=== PATIENT | female | born 1990 | race Caucasian/White ===

== ENCOUNTER 2017-01-24 02:19 | Emergency (ER) | payer OTHER ==
--- NOTE | ~2017-01-24 | CR2 ---
[facility]. [facility] A Service of [facility] & [facility] RADIOLOGY TEXT RESULTS PATIENT: HERON CHISHOLM LOCATION: SED : [birth year] UNIT #: [id number] AGE: [address]: Zackery Gaines MD SEX: F ORDER DR: [id number] [place] [address] [id number] E MR#: [id number] Acc #: [id number] NAME: HERON CHISHOLM : 1990 SEX: F STUDY DATE/TIME: 01/24/2017 3:42 UNIT: SED ROOM: STUDY DESCRIPTION: CR Abdomen Acute Series Attending Physician: Zackery Gaines M.D. Ordering Physician: Zackery Gaines M.D. Primary Care Physician: Primary Care Physician No MEDICAL IMAGING REPORT This report is preliminary unless electronic signature is present. EXAM Acute abdominal series INDICATION Right upper quadrant abdominal and flank pain tonight. PROCEDURE Frontal view chest, supine upright views abdomen and pelvis. COMPARISON None FINDINGS The lungs are clear. No free air. No visible radiodense urinary system calculus. Moderately large colonic stool burden. IMPRESSION Moderately large colonic stool burden. No other acute findings. Dictated by... Alberto Hdz M.D. THIS IS AN ELECTRONICALLY VERIFIED REPORT Alberto Hdz M.D. at 01/24/2017 10:09 PM SÁNCHEZ/mariano TD: 01/24/2017 11:13 JOB #: [id number] MEDICAL IMAGING REPORT Page 1 of 1
[~2017-01-24 02:19] MED LIST: ALBUTEROL17 GM INH; BACTRIM DS TABL1 TA1 PO; BIAXIN PO; BIRTH CONTROL PILL PO; ERYTHROMYCIN O3.5 G1 OP; IBUPROFEN PO; IBUPROFEN800 MG PO; MACROBID100 MG PO; NO MEDICATIONS; PHENERGAN W/CO120 ML PO; TYLOX 5/500 CAP1 CAP PO; VICODIN 5/500 T1 TAB PO; VOLTAREN75 MG PO; ZYRTEC
[2017-01-24 02:52] LABS: BASOPHIL% 0.5 % (0-2.5); EOSINOPHIL# 0.4 X10e3 (0-0.7); EOSINOPHIL% 3.6 % (0.0-7.0); HEMATOCRIT 46.3 % (35.0-45.0); HEMOGLOBIN 16.2 gm/dL (12.0-16.0); LYMPHOCYTE# 2.4 X10e3 (1.0-3.5); LYMPHOCYTE% 23.4 % (17.0-45.0); MEAN CELL VOLUME 96.3 FL (83-96); MEAN CORPUSCULAR HEMOGLOBIN 33.7 PG (28-34); MEAN PLATELET VOLUME 9.1 FL (6.5-11.5); MONOCYTE# 0.6 X10e3 (0-1.0); MONOCYTE% 5.9 % (3.0-12.0); NEUTROPHIL# 6.8 X10e3 (1.5-7.1); NEUTROPHIL% 66.6 % (40-75); PLATELET COUNT 215 X10e3 (140-420); RED CELL DISTRIBUTION WIDTH 13.6 % (11.0-15.5); WHITE BLOOD COUNT 10.2 X10e3 (4.0-10.5)
[2017-01-24 02:53] LABS: DIFF IND NO
[2017-01-24 03:15] LABS: ALBUMIN SERUM 4.2 g/dL (3.5-5.0); BILIRUBIN,TOTAL 0.6 mg/dL (0.2-2.0); BUN/CREATININE RATIO 13.33; CALCIUM SERUM 9.1 mg/dL (8.4-10.2); CREATININE SERUM 0.6 mg/dL (0.6-1.4); GLOM FILT RATE Estimated 126.7 mL/min (>60); POTASSIUM 3.5 mmol/L (3.5-5.1); PROTEIN TOTAL SERUM 7.5 g/dL (6.0-8.3)
[2017-01-24] MEDS ORDERED: NO MEDICATIONS (15:55)
[2017-01-25] MEDS ORDERED: PERCOCET 7.5-31 EACH (16:22)
== END 2017-01-24 05:16 | disposition home or self-care (01) ==
LOC: SED 02:19
DX: K59.00 Constipation, unspecified (principal); R11.2 Nausea with vomiting, unspecified; F17.200 Nicotine dependence, unspecified, uncomplicated; Z79.899 Other long term (current) drug therapy
CPT/HCPCS: 29540; 74022; 80053; 83690; 84703; 85025; 99283; J1170; J2270; J2405

== ENCOUNTER 2017-01-24 13:26 | Observation (INO) | payer OTHER ==
--- NOTE | ~2017-01-24 | HP ---
Unit #: [id number] #: [id number] Patient: HERON CHISHOLM [id number] [address] [address] [id number] I MR#: [id number] NAME: HERON CHISHOLM. ROOM: 479 Age: 26 Sex: F Admission Date: 01/24/2017 : 1990 Attending Physician: Figueroa Cardoso M.D. Primary Care Physician: No Primary Care Physician HISTORY AND PHYSICAL CHIEF COMPLAINT Mid epigastric and right upper quadrant abdominal pain. HISTORY OF PRESENT ILLNESS The patient is a 26-year-old white female who was in her normal good health up until 2 evenings ago when she had eaten some fast food and developed severe mid epigastric and chest pain with right upper quadrant abdominal pain. She had some associated nausea. She presented to the emergency room with these symptoms. She has had some occasional right upper quadrant pain in the past but felt that this was probably related just to gas pains. She had an ultrasound through the emergency room, which revealed evidence of gallstones and probable chronic cholecystitis. PAST MEDICAL HISTORY She has had a history of some asthma, as well as a psychiatric history. 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 SURGERIES IN THE PAST She has had a tonsillectomy, I and D's, benign breast tumor removed and , tubal ligation. MEDICATIONS None chronically except for an occasional inhaler. ALLERGIES None known. TRANSFUSIONS None in the past. FAMILY HISTORY Noncontributory. SOCIAL HISTORY The patient is and lives at home with her family. Normal good appetite with no recent weight change. She has several young children at home. IMMUNIZATIONS Immunizations are up to date. REVIEW OF SYSTEMS A 10-system review of systems has been performed, which his unremarkable, Unit #: [id number] #: [id number] Patient: HERON CHISHOLM except that noted in the history of present illness. She denies any past history for jaundice, hepatitis, pancreatitis or peptic ulcer disease. PHYSICAL EXAMINATION GENERAL DESCRIPTION: The patient is a well-developed, well-nourished 26-year-old white female in no acute distress. VITAL SIGNS: Normal. Temperature 98.2, pulse 100 (now 80), blood pressure 92/60 (was 112/74). HEENT: Unremarkable. NECK: Supple. CHEST: There is equal bilateral expansion with bilateral equal breath sounds. RESPIRATORY: The lungs are clear bilaterally. HEART: Regular rhythm without murmurs, gallops. There is no evidence of cardiomegaly clinically. ABDOMEN: Abdomen is soft, mildly tender in the mid epigastrium and right upper quadrant without masses or organomegaly. There is no gross abdominal distention. No guarding or rebound. Active bowel sounds present. No evidence of ascites or hernias. EXTREMITIES: Full range of motion without limitation. There is no evidence of peripheral edema. BACK EXAM: There is no CVA tenderness. NEUROLOGIC: Grossly intact. DIAGNOSTIC STUDIES LABORATORY: Basically normal. Her liver function tests are normal. IMPRESSION The patient has symptomatic gallbladder disease with biliary colic, possible acute cholecystitis. PLAN Plan will be to go ahead with laparoscopic cholecystectomy. Discussed the surgery, including the risks, including that of common duct injury, biliary leak and bleeding and intraabdominal organ injury, with the patient, and she understands and consents. Dictated by Aydin Rojas Jr. MKathe. LATIA/jacyk TD: 01/25/2017 10:00 JOB #: [id number] HISTORY AND PHYSICAL Page 1 of 1 X Aydin Rojas MD HISTORY AND PHYSICAL
--- NOTE | ~2017-01-24 | OR ---
Unit #: [id number] #: [id number] Patient: HERON CHISHOLM [id number] [address] [address] [id number] I MR#: [id number] NAME: HERON CHISHOLM ROOM: 479 Date of Procedure: 01/25/2017 Admission Date: 01/24/2017 Surgeon: Figueroa Cardoso M.D. : 1990 Attending Physician: Figueroa Cardoso M.D. Primary Care Physician: Primary Care Physician No OPERATIVE REPORT PREOPERATIVE DIAGNOSIS Acute cholecystitis. POSTOPERATIVE DIAGNOSIS Acute cholecystitis. PROCEDURE PERFORMED Laparoscopic cholecystectomy. ANESTHESIA General endotracheal. COMPLICATIONS None. ESTIMATED BLOOD LOSS 50 mL. DESCRIPTION OF PROCEDURE After the patient was prepped and draped in usual fashion, 1-cm infraumbilical incision was made. A Veress needle was passed. The peritoneal cavity was insufflated in usual fashion. A 5-mm port was placed under direct vision. An upper midline 11-mm port and 2 right upper quadrant 5-mm ports were placed. The gallbladder was inspected. It was partly intrahepatic. It was tensely distended. Approximately 30 mL of nearly white bile were aspirated. The gallbladder dome was then able to be grasped, retracted cephalad. The infundibulum was splayed out. The cystic duct and cystic artery were both dissected bluntly from the surrounding tissues. The cystic duct was then clipped doubly proximally, singly distally, and divided. The cystic artery was then clipped doubly proximally, singly distally, and divided. The gallbladder was taken off the bed using electrocautery and retrieved through the upper midline trocar site with an Endopouch. There was a fair amount of oozing from the blood. This was controlled with electrocautery. Right upper quadrant was irrigated and suctioned free. There was no further bleeding. The ports were removed under direct vision. There was no bleeding. Abdomen was desufflated. A neoClose was used to close the upper midline trocar site fascia. All wounds were closed with clips. All wounds were infiltrated with 0.5% Marcaine with epinephrine. Dressings applied. The patient was taken to the recovery room in good condition. Unit #: [id number] #: [id number] Patient: HERON CHISHOLM Dictated by... Alexandra Santana/leno TD: 01/25/2017 11:11 JOB #: [id number] OPERATIVE REPORT Page 1 of 1 X Figueroa Cardoso X PROCEDURE OPERATIVE NOTE
--- NOTE | ~2017-01-24 | US67 ---
[facility] A Service of [facility] RADIOLOGY TEXT RESULTS PATIENT: HERON CHISHOLM LOCATION: [place] [address] : [birth year] UNIT #: [id number] AGE: [address]: Figueroa Cardoso SEX: F ORDER DR: [id number] [facility] [address]. [place], [place] [address] [id number] E MR#: [id number] Acc #: [id number] NAME: HERON CHISHOLM. : 1990 SEX: F STUDY DATE/TIME: 01/24/2017 15:06 UNIT: [facility] ROOM: STUDY DESCRIPTION: Gallbladder Attending Physician: Chaz Leon M.D. Ordering Physician: Chaz Leon M.D. Primary Care Physician: No Primary Care Physician MEDICAL IMAGING REPORT This report is preliminary unless electronic signature is present EXAM Gallbladder sonogram. CLINICAL HISTORY Pain and bloating since yesterday afternoon. Pain radiating down flank and into back. FINDINGS Real-time examination demonstrates the liver to be of normal size, shape and echogenicity. The gallbladder demonstrates several mobile echogenic stones with mild gallbladder wall thickening and some gallbladder sludge. Findings are nonspecific but could reflect acute or chronic cholecystitis. Correlate clinically. The common bile duct measures up to 6.9 mm upper limits of normal. Visualized right kidney and liver appear normal. No free fluid. IMPRESSION Cholelithiasis with gallbladder wall thickening but no definite pericholecystic fluid. There is also upper limits of normal dilatation of the common bile duct. Findings nonspecific but could reflect either acute or chronic cholecystitis. Correlate with clinical presentation and laboratory data. Dictated by... Venice Cruz M.D. THIS IS AN ELECTRONICALLY VERIFIED REPORT Venice Cruz M.D. at 01/24/2017 9:09 PM Velia TD: 01/24/2017 17:12 JOB #: [id number] [facility] A Service [facility] RADIOLOGY TEXT RESULTS PATIENT: HERON CHISHOLM [facility] [id number] : [birth year] UNIT #: [id number] AGE: [address]: Figueroa Cardoso SEX: F ORDER DR: MEDICAL IMAGING REPORT Page 1 of 1 COPY
[2017-01-24 14:39] LABS: BASOPHIL# 0.1 X10e3 (0-0.3); BASOPHIL% 0.4 % (0-2.5); EOSINOPHIL# 0.1 X10e3 (0-0.7); EOSINOPHIL% 0.8 % (0.0-7.0); HEMATOCRIT 48.1 % (35.0-45.0); HEMOGLOBIN 16.1 gm/dL (12.0-16.0); LYMPHOCYTE# 1.3 X10e3 (1.0-3.5); MEAN CELL VOLUME 97.3 FL (83-96); MEAN CORPUSCULAR HEMOGLOBIN 32.6 PG (28-34); MEAN CORPUSCULAR HGB CONC 33.5 g/dL (30-36); MEAN PLATELET VOLUME 9.5 FL (6.5-11.5); MONOCYTE# 1.1 X10e3 (0-1.0); NEUTROPHIL# 11.7 X10e3 (1.5-7.1); NEUTROPHIL% 81.8 % (40-75); PLATELET COUNT 198 X10e3 (140-420); RED BLOOD COUNT 4.94 X10e (3.90-5.30); RED CELL DISTRIBUTION WIDTH 13.5 % (11.0-15.5); WHITE BLOOD COUNT 14.3 X10e3 (4.0-10.5)
[2017-01-24 14:45] LABS: URINE SOURCE CLEAN CATCH
[2017-01-24 14:54] LABS: URINE APPEARANCE CLEAR; URINE BILIRUBIN NEG (NEG); URINE BLOOD NEG (NEG); URINE COLOR YELLOW; URINE GLUCOSE NEG (NEG); URINE KETONE 3+ (NEG); URINE LEUKOCYTE ESTERASE NEG (NEG); URINE NITRATE NEG (NEG); URINE PROTEIN NEG (NEG); URINE UROBILINOGEN 0.2 MG/DL (NEG)
[2017-01-24 15:02] LABS: DIFF IND NO
[2017-01-24 15:12] LABS: BILIRUBIN, DIRECT 0.1 mg/dL (0.0-0.2); BILIRUBIN,INDIRECT 0.9 mg/dL (0.0-0.9); CALCIUM SERUM 8.6 mg/dL (8.4-10.2); CREATININE SERUM 0.5 mg/dL (0.6-1.4); GLOM FILT RATE Estimated 134.5 mL/min (>60); POTASSIUM 3.6 mmol/L (3.5-5.1); PROTEIN TOTAL SERUM 6.7 g/dL (6.0-8.3)
[2017-01-24] MEDS ORDERED: NO MEDICATIONS (15:55)
[2017-01-25 04:08] LABS: BASOPHIL% 0.2 % (0-2.5); DIFF IND NO; EOSINOPHIL# 0.2 X10e3 (0-0.7); EOSINOPHIL% 1.8 % (0.0-7.0); HEMATOCRIT 42.7 % (35.0-45.0); HEMOGLOBIN 14.1 gm/dL (12.0-16.0); LYMPHOCYTE# 2.2 X10e3 (1.0-3.5); LYMPHOCYTE% 20.3 % (17.0-45.0); MEAN CELL VOLUME 98.7 FL (83-96); MEAN CORPUSCULAR HEMOGLOBIN 32.7 PG (28-34); MEAN CORPUSCULAR HGB CONC 33.1 g/dL (30-36); MEAN PLATELET VOLUME 9.2 FL (6.5-11.5); MONOCYTE# 1.3 X10e3 (0-1.0); MONOCYTE% 11.7 % (3.0-12.0); NEUTROPHIL# 7.3 X10e3 (1.5-7.1); PLATELET COUNT 178 X10e3 (140-420); RED BLOOD COUNT 4.32 X10e (3.90-5.30); RED CELL DISTRIBUTION WIDTH 13.3 % (11.0-15.5)
[2017-01-25 04:32] LABS: ALBUMIN SERUM 3.5 g/dL (3.5-5.0); ALKALINE PHOSPHATASE 46 U/L (32-92); ALT (SGPT) 19 U/L (10-40); AST (SGOT) 23 U/L (10-42); BILIRUBIN,TOTAL 0.6 mg/dL (0.2-2.0); CALCIUM SERUM 8.4 mg/dL (8.4-10.2); CARBON DIOXIDE 26 mmol/L (22-31); CHLORIDE 106 mmol/L (100-111); CREATININE SERUM 0.5 mg/dL (0.6-1.4); GLOM FILT RATE Estimated 134.5 mL/min (>60); GLUCOSE FASTING 142 mg/dL (70-110); POTASSIUM 3.5 mmol/L (3.5-5.1); PROTEIN TOTAL SERUM 6.3 g/dL (6.0-8.3); SODIUM 136 mmol/L (135-145)
[2017-01-25 04:33] LABS: BLOOD UREA NITROGEN <5 mg/dL (9-23)
[2017-01-25] MEDS ORDERED: PERCOCET 7.5-31 EACH (16:22)
== END 2017-01-25 17:45 | disposition home or self-care (01) ==
LOC: CED 13:26 → CEDOF 16:30 → CED 16:57 → CEDOF 16:57 → C4B 18:33 → C4C 19:39
PROVIDERS: Emergency Medicine; Surgery
DX: K80.12 Calculus of gallbladder with acute and chronic cholecystitis without obstruction (principal); J45.909 Unspecified asthma, uncomplicated; F17.200 Nicotine dependence, unspecified, uncomplicated
CPT/HCPCS: 36415; 76705; 80048; 80053; 80076; 81003; 82150; 83690; 84703; 85025; 88304; 96361; 96374; 96375; 96376; 99285; G0378; J0330; J0690; J1100; J1170; J1885; J2270; J2405; J2550; J2710; J3010; J3370